=== PATIENT | male | born 1965 | race Two or more races ===

== ENCOUNTER → 2017-01-02 | Outpatient (CLI) | payer OTHER ==
[~2017-01-02] MED LIST: ATOR40TA78 PO; FLUO20TA25 PO; LINA5TAB PO; MECL25TA4 PO; OXYC-302 PO; POLY119P4 PO
== END | disposition home or self-care (01) ==
LOC: CFH 11:57
PROVIDERS: ATTEND Nurse Practitioner Family
DX: M79.672 Pain in left foot (principal)